=== PATIENT | female | born 1995 ===

== ENCOUNTER 2018-02-25 16:08 | Inpatient (IN) ==
[2018-02-25] MEDS ORDERED: MEPERIDINE 50 MG/1 ML VIAL IM PRN (16:40)
[2018-02-25] MEDS ORDERED: LACTATED RINGERS 500 ML IV PRN (16:40)
[2018-02-25] MEDS: LACTATED RINGERS 1,000 ML IV SCH (16:53)
[2018-02-25 17:08] LABS: Basophils % 0.5 % (0.0-0.8); Eosinophils % 0.6 % (0.00-10.9); Hematocrit 39.4 VOL% (35.7-47.0); Hemoglobin 13.1 GM/DL (12.0-16.0); Immature Granulocytes % 0.6 %; Immature Granulocytes Absolute 0.04 #; Lymphocytes # 1.8 10*3/uL (1.4-4.0); Lymphocytes % 26.5 % (21.3-54.2); Mean Corpuscular HGB Conc 33.2 GM/DL (32-36); Mean Corpuscular Hemoglobin 30 PG (27-34); Mean Corpuscular Volume 89.3 FL (87-102); Mean Platelet Volume 9.8 FL (9.6-12.0); Monocytes # 0.7 10*3/uL (0.11-0.8); Neutrophils # 4.1 10*3/uL (1.4-7.4); Neutrophils % 61.8 % (38.7-73.9); Platelet Count 208 T/CUMM (130-400); Red Blood Count 4.41 MC/CUMM (3.8-5.5); Red Cell Distribution Width 13.1 % (9.3-17.3); White Blood Count 6.6 T/CUMM (4-12)
[2018-02-26] MEDS: LACTATED RINGERS 1,000 ML IV SCH ×2 (00:45→07:30)
[2018-02-26] MEDS: ONDANSETRON 4 MG/2 ML VIAL IV PRN ×2 (00:55→11:00)
[2018-02-26] MEDS: MEPERIDINE 50 MG/1 ML VIAL IV PRN ×2 (00:55→05:08)
[2018-02-26] MEDS ORDERED: MEPERIDINE 25 MG/1 ML VIAL IV PRN (01:02)
[2018-02-26] MEDS ORDERED: OXYTOCIN/LR 20 UNIT/1,000 ML BAG IV SCH (04:00)
[2018-02-26] MEDS ORDERED: FAMOTIDINE 20 MG/2 ML VIAL IV ONE (09:16)
[2018-02-26] MEDS ORDERED: diphenhydrAMINE 50 MG/1 ML VIAL IV PRN ×2 (09:16)
[2018-02-26] MEDS ORDERED: LACTATED RINGERS 1,000 ML IV ONE ×2 (09:16→18:18)
[2018-02-26] MEDS ORDERED: ePHEDrine 50 MG/ML AMP IV PRN (09:16)
[2018-02-26] MEDS ORDERED: CITRIC ACID/SODIUM CITRATE 30 ML UDCUP PO ONE (09:16)
[2018-02-26] MEDS ORDERED: fentaNYL 2 MCG/ROPIV 0.2% EPID 150 ML EPIDURAL SCH (09:30)
[2018-02-26] MEDS ORDERED: LACTATED RINGERS 1,000 ML IV SCH ×3 (09:30→18:30)
[2018-02-26 10:48] LABS: Apearance,Urine CLEAR (Clear); Bilirubin,Urine Negative (Negative); Blood, Urine Negative (Negative); Glucose,Urine (UA) Negative (Negative); Ketones,Urine Negative (Negative); Nitrite,Urine Negative (Negative); Protein,Urine Negative; RBC,Urine <1 /HPF (0-4); Urine Color Straw (Yellow); Urine Specific Gravity 1.004 (1.001-1.035); Urine Urobilinogen < 2.0 EU/DL (0.2-1.0); WBC,Urine 1 /HPF (0-6)
[2018-02-26] MEDS ORDERED: PROMETHAZINE 25 MG/1 ML VIAL ONE (12:24)
[2018-02-26] MEDS ORDERED: PROMETHAZINE 25 MG/1 ML VIAL IM PRN (12:30)
[2018-02-26] MEDS ORDERED: BUTORPHANOL 2 MG/ML VIAL IV ONE (14:54)
[2018-02-26] MEDS ORDERED: OXYTOCIN 10 UNIT/ML VIAL IM ONE (16:58)
[2018-02-26] MEDS ORDERED: OXYTOCIN/LR 30 UNIT/1,000 ML BAG IV ONE (16:58)
[2018-02-26] MEDS ORDERED: CLINDAMYCIN INJ 900 MG in PREMIX 1 EACH IV ONE (17:00)
[2018-02-26 18:04] LABS: Cord Venous Blood PCO2 49.1 MMHG; Cord Venous Blood PO2 43.1 MMHG
[2018-02-26] MEDS ORDERED: ACETAMINOPHEN 325 MG TABLET PO PRN (18:17)
[2018-02-26] MEDS ORDERED: RHO(D) IMMUNE GLOBULIN 300 MCG SYRINGE IM ONE (18:17)
[2018-02-26] MEDS ORDERED: SIMETHICONE CHEW 80 MG TABLET PO PRN (18:17)
[2018-02-26] MEDS ORDERED: MAGNESIUM HYDROXIDE SUSP 30 ML UDCUP PO PRN (18:17)
[2018-02-26] MEDS ORDERED: ONDANSETRON 4 MG/2 ML VIAL IV PRN (18:17)
[2018-02-26] MEDS ORDERED: OXYTOCIN/LR 20 UNIT/1,000 ML BAG IV ONE (18:17)
[2018-02-26] MEDS ORDERED: LACTATED RINGERS 500 ML IV ONE (18:18)
[2018-02-26] MEDS ORDERED: SUMAtriptan 6 MG/0.5 ML VIAL SUBCUT PRN (18:18)
[2018-02-26] MEDS ORDERED: fentaNYL 100 MCG/2 ML VIAL ONE (18:20)
[2018-02-26] MEDS ORDERED: GLYCOPYRROLATE 0.4 MG/2 ML VIAL ONE (18:21)
[2018-02-26] MEDS ORDERED: MIDAZOLAM 2 MG/2 ML VIAL ONE (18:21)
[2018-02-26] MEDS ORDERED: PROPOFOL 200 MG/20 ML VIAL IV ONE (18:23)
[2018-02-26] MEDS ORDERED: NEOSTIGMINE 10 MG/10 ML VIAL ONE (18:25)
[2018-02-26] MEDS ORDERED: BUTALBITAL/ACETAMIN/CAFFEINE 50-325-40 MG TABLET PO PRN (22:19)
[2018-02-27] MEDS ORDERED: ceFAZolin 1,000 MG in SYRINGE 1 EACH IV SCH (01:00)
[2018-02-27] MEDS: CLINDAMYCIN INJ 900 MG in PREMIX 1 EACH IV SCH ×2 (02:01→09:46)
[2018-02-27 02:14] LABS: Basophils % 0.1 % (0.0-0.8); Hematocrit 32.9 VOL% (35.7-47.0); Hemoglobin 11.3 GM/DL (12.0-16.0); Immature Granulocytes % 0.5 %; Immature Granulocytes Absolute 0.08 #; Lymphocytes # 1.2 10*3/uL (1.4-4.0); Mean Corpuscular HGB Conc 34.3 GM/DL (32-36); Mean Corpuscular Hemoglobin 30 PG (27-34); Mean Corpuscular Volume 88.4 FL (87-102); Mean Platelet Volume 9.8 FL (9.6-12.0); Monocytes # 0.8 10*3/uL (0.11-0.8); Monocytes % 4.8 % (1.7-12.7); Neutrophils # 14.5 10*3/uL (1.4-7.4); Neutrophils % 87.6 % (38.7-73.9); Platelet Count 180 T/CUMM (130-400); Red Blood Count 3.72 MC/CUMM (3.8-5.5); Red Cell Distribution Width 13.2 % (9.3-17.3); White Blood Count 16.5 T/CUMM (4-12)
[2018-02-27] MEDS: DOCUSATE SODIUM 100 MG CAPSULE PO SCH ×3 (04:39→20:11)
[2018-02-27 10:04] LABS: Basophils % 0.2 % (0.0-0.8); Eosinophils % 0.1 % (0.00-10.9); Hematocrit 31.9 VOL% (35.7-47.0); Hemoglobin 10.6 GM/DL (12.0-16.0); Immature Granulocytes % 0.5 %; Immature Granulocytes Absolute 0.08 #; Lymphocytes # 2.1 10*3/uL (1.4-4.0); Lymphocytes % 13.2 % (21.3-54.2); Mean Corpuscular HGB Conc 33.2 GM/DL (32-36); Mean Corpuscular Hemoglobin 30 PG (27-34); Mean Corpuscular Volume 89.6 FL (87-102); Mean Platelet Volume 9.5 FL (9.6-12.0); Monocytes # 1.2 10*3/uL (0.11-0.8); Monocytes % 7.2 % (1.7-12.7); Neutrophils # 12.8 10*3/uL (1.4-7.4); Neutrophils % 78.8 % (38.7-73.9); Platelet Count 167 T/CUMM (130-400); Red Blood Count 3.56 MC/CUMM (3.8-5.5); Red Cell Distribution Width 13.2 % (9.3-17.3); White Blood Count 16.2 T/CUMM (4-12)
[2018-02-27] MEDS: MULTIVITAMIN (PRENATAL) TABLET PO SCH (10:29)
[2018-02-27] MEDS: IBUPROFEN 800 MG TABLET PO PRN (13:20)
[2018-02-28] MEDS: MULTIVITAMIN (PRENATAL) TABLET PO SCH (09:04)
[2018-02-28] MEDS: DOCUSATE SODIUM 100 MG CAPSULE PO SCH ×2 (09:04→20:56)
[2018-02-28] MEDS: IBUPROFEN 800 MG TABLET PO PRN (09:52)
[2018-03-01] MEDS: IBUPROFEN 800 MG TABLET PO PRN (07:41)
[2018-03-01 09:15] VITALS: BP 122/75
[2018-03-01] MEDS: MULTIVITAMIN (PRENATAL) TABLET PO SCH (09:57)
[2018-03-01] MEDS: DOCUSATE SODIUM 100 MG CAPSULE PO SCH (09:57)
[2018-03-01] MEDS ORDERED: MEASLES/MUMPS/RUBELLA VACCINE 0.5 ML VIAL SUBCUT ONE (12:38)
[2018-03-01] MEDS ORDERED: DIPH/TET/ACEL PERT BOOSTER VACCINE 0.5 ML VIAL IM ONE (14:00)
== END 2018-03-01 15:05 | disposition home or self-care (01) | DRG 766 ==
LOC: N.LDOUT 16:08 → N.LD 16:18 → N.OB 02-26 20:45
PROVIDERS: ADMIT Obstetrics & Gynecology; ATTEND Obstetrics & Gynecology
PROC: LDCSECT (ICD-10-PCS; 2018-02-26 17:00)